=== PATIENT | male | born 1945 | race Caucasian/White ===

== ENCOUNTER 2017-02-09 06:56 | Outpatient (CLI) | payer OTHER ==
[~2017-02-09] VITALS: Ht 185.4 cm; Wt 88.0 kg
[2017-02-09] VITALS (12 sets, daily range): BP systolic 93–149; BP diastolic 55–87
[~2017-02-09 06:56] MED LIST: ACET325T9 PO; ALPR0.5T6 PO; AMLO5TAB2 PO; CARB15DR3 EACHEYE; CEPH-264 PO; CITA40TA12 PO; CLON1TAB3 PO; CLOT15CR5 TP; DICL100G7 TP; DIPH1TAB5 PO; ENAL20TA PO; ENAL20TA4 PO; ENOX40DI SQ; ESCI10TA PO; FERR-26 PO; FOLI1TAB16 PO; FURO-68 PO; FURO20TA3 PO; FURO40TA4 PO; INSU100I17 SUBCUT; INSU100V31 SQ; LEVO50TA PO; LORA0.5T PO; LORA0.5T96 PO; METO10TA81 PO; METO25TA4 PO; METO50TA2 PO; MIRT15TA PO; MORP15TA3 PO; NEOM10DR8 RIGHT EAR; ONDA-35 PO; ONDA8TAB9 PO; OXYC10TA PO; OXYC10TA32 PO; OXYC15TA60 PO; PARO20TA3 PO; POLY255P PO; POTA10CA PO; POTA8TAB PO; PROC5TAB14 PO; PROM25TA10 PO; SENN8.6T99 PO; SPIR25TA3 PO; SPIR50TA PO; TEMA15CA PO; TEMA30CA PO; TRAZ150T55 PO; ZOLP10TA PO; ZOLP5TAB PO; cefazolin IV; folic acid PO
[2017-02-09] MEDS ORDERED: ZOLP10TA4 PO (07:24)
[2017-02-09] MEDS ORDERED: IPRA3AMP NEB (07:24)
[2017-02-09] MEDS ORDERED: BACI1CAP4 PO (07:24)
[2017-02-09] MEDS ORDERED: OXYC10TA PO (07:24)
[2017-02-09] MEDS ORDERED: CEPH500C PO (07:24)
[2017-02-09 07:37] LABS: BASO % 1 % (0-3); EOS % 1 % (0-3); HEMATOCRIT 24.9 % (39.0-53.0); LYMPH # 0.4 x10^3/uL (1.0-4.8); LYMPH % 16 % (24-48); MEAN CORPUSCULAR HEMOGLOBIN 29 pg (25-35); MEAN CORPUSCULAR HGB CONC 32 g/dL (31-37); MEAN CORPUSCULAR VOLUME 90 fL (79-100); MONO % 9 % (0-9); NEUT % 74 % (31-73); PLATELET COUNT 67 x10^3/uL (140-400); RED BLOOD COUNT 2.78 x10^6/uL (4.30-5.70); RED CELL DISTRIBUTION WIDTH 18.4 % (11.5-14.5); WHITE BLOOD COUNT 2.5 x10^3/uL (4.0-11.0)
[2017-02-09] MEDS ORDERED: OXYCODONE ER 10 MG TAB.ER.12H. PO ONE (07:45)
[2017-02-09 08:00] LABS: INR 1.3 (0.8-1.1); PROTHROMBIN TIME PATIENT 15.7 SEC (11.7-14.0)
[2017-02-09] MEDS ORDERED: LIDOCAINE 1% / SOD BICARB 8.4% 20 ML VIAL. IJ ONE ×2 (08:13→09:00)
[2017-02-09] MEDS ORDERED: MIDAZOLAM HCL/PF 2 MG/2 ML VIAL. ONE (08:18)
[2017-02-09] MEDS ORDERED: FENTANYL PF 100 MCG/2 ML VIAL. ONE (08:18)
--- NOTE | 2017-02-09 08:47 | PDOC ---
MODERATE SEDATION ASSESSMENT RISKS/ALTERNATIVES Risks/Alternatives Risks and alternatives of this type of sedation and procedure discussed with: RISK/ALTERNATIVES: Patient H & P ON CHART H & P H & P on chart and reviewed for co-morbid conditions and appropriate labs. H&P ON CHART: Yes STATUS PREG STATUS ASSESSED: N/A MEDS/ALLERGIES REVIEWED Meds/Allergies Reviewed Medications and Allergies including time and route of recently administered narcotics and sedatives. MEDS/ALLERGIES REVIEWED: Yes ASA RATING ASA RATING: III AIRWAY ASSESSMENT Airway Assessment Airway patency, oral function limitations, presence of caps, crowns, dentures, partials, and ability to extend neck assessed. AIRWAY ASSESSMENT: Yes MALLAMPATI SCORE MALLAMPATI SCORE: II PRE-SEDATION ASSESSMENT PRE-SEDATION ASSESSMENT: Yes DURGA PELAYO MD Feb 09, 2017 08:47
--- NOTE | 2017-02-09 08:51 | PDOC1 ---
History and Physical Date of Procedure Date of Admission 02/09/17 Procedure Procedure Image guided Tx paracentesis Indication Indication 71 YO male with h/o CHF and CKD. Now with recurrent, large volume, symptomatic ascites----Tx paracentesis has been requested. Past Medical History Past Medical History See Nursing Pre procedure PMH Past Surgical History Past Surgical History See Nursing Pre procedure PSH Current Medications Current Medications Current Medications Oxycodone HCl (Oxycontin) 10 mg 1X ONCE PO Last administered on 02/09/17t 08: 06; Start 02/09/17 at 07:45; Stop 02/09/17 at 08:00; Status DC Lidocaine/Sodium Bicarbonate (Buffered Lidocaine 1%) 20 ml STK-MED ONCE IJ ; Start 02/09/17 at 08:13; Stop 02/09/17 at 08:14; Status DC Fentanyl Citrate (Fentanyl 2ml Vial) 100 mcg STK-MED ONCE .ROUTE ; Start at 08:18; Stop 02/09/17 at 08:19; Status DC Midazolam HCl (Versed) 2 mg STK-MED ONCE .ROUTE ; Start 02/09/17 at 08:18; Stop 02/09/17 at 08:19; Status DC Active Scripts Active Reported Duoneb 0.5-3(2.5) Mg/3 Ml (Albuterol/Ipratropium) 3 Ml Ampul.neb 3 Ml NEB Q4HRS PRN Zolpidem Tartrate 10 Mg Tablet 1 Tab PO QHS Probiotic Formula Capsule (Bacillus Coagulans/Inulin) 1 Each Capsule 1 Each PO DAILY Oxycodone Hcl 10 Mg Tablet 10 Mg PO Q8HRS PRN Cephalexin 500 Mg Capsule 1 Cap PO BID Voltaren (Diclofenac Sodium) 100 Gm Gel..gram. 2 Gm TP QIDPRN PRN Ondansetron Hcl 4 Mg Tablet 8 Mg PO QIDPRN PRN Clotrimazole-Betamethasone Crm (Clotrimazole/Betamethasone Dip) 15 Gm Cream..g. 1 Rolando TP BID Potassium Chloride 10 Meq Capsule.er 8 Meq PO DAILY Furosemide 20 Mg Tablet 1 Tab PO DAILY [ folic acid] 1 Mg PO DAILY Senokot (Sennosides) 8.6 Mg Tablet 1 Tab PO DAILY PRN Tylenol (Acetaminophen) 325 Mg Tablet 650 Mg PO PRN Q8HRS PRN Escitalopram Oxalate 10 Mg Tablet 1 Tab PO DAILY Alprazolam 0.5 Mg Tablet 0.5 Mg PO Q8HRS PRN Amlodipine Besylate 5 Mg Tablet 5 Mg PO DAILY Synthroid (Levothyroxine Sodium) 50 Mcg Tablet 100 Mcg PO DAILYAC Allergies Allergies: Coded Allergies: egg (Verified Allergy, Severe, 07/27/16) adhesive (Verified Allergy, Intermediate, Rash, 07/15/16) morphine (Verified Adverse Reaction, Mild, AGGITATION, 11/06/16) Physical Exam Vital Signs Vital Signs Date Time Temp Pulse Resp B/P Pulse Ox O2 Delivery O2 Flow Rate FiO2 02/09/17 08:37 82 14 99 Room Air 02/09/17 07:33 98.1 124/83 98.1 Lungs: Clear to auscultation Heart: Regular rate Psych/Mental Status: Mental status NL Other Abdomen: Distended with fluid wave. Assessment Assessment Recurrent, large volume, symptomatic ascites. Problems: Plan Plan Image guided Tx paracentesis DURGA PELAYO MD Feb 09, 2017 08:51
--- NOTE | 2017-02-09 08:54 | PDOC ---
Exam Magazine Filler Magazine Filler Kiera Contract Law Specialist Contract Law Specialist F Ndumbu Pre-Procedure Diagnosis Pre-Procedure Diagnosis 71 YO male with h/o CHF and CKD. Recurrent, large volume, symptomatic ascites. Post-Procedure Diagnosis Post-Procedure Diagnosis Same Procedure Performed Procedure Performed CT guided Tx paracentesis Type of Anesthesia Type of Anesthesia Local + Mod sedation Estimated Blood Loss EBL: Trace Specimens Specimans 5600 cc yellow-clear ascites removed and discarded. Condition of Patient Condition of Patient Stable. No apparent complication. Infusion of 25 grams 25% albumin initiated during paracentesis procedure. Disposition Disposition Home from [facility] post recovery, if no problems. F/u with referring physician. Full report to follow. DURGA PELAYO MD Feb 09, 2017 08:53
[2017-02-09] MEDS ORDERED: FENTANYL PF 100 MCG/2 ML VIAL. IV ONE (09:00)
[2017-02-09] MEDS ORDERED: ALBUMIN HUMAN 25% 100 ML IV ONE (09:00)
[2017-02-09] MEDS ORDERED: MIDAZOLAM HCL/PF 2 MG/2 ML VIAL. IV ONE (09:00)
--- NOTE | 2017-02-10 10:50 | RAD ---
CT-guided therapeutic paracentesis Indication: 71-year-old male with chronic kidney disease, congestive heart failure, and recurrent, symptomatic, large volume ascites. Image guided paracentesis has been requested. Anesthesia: 31 minutes moderate sedation was provided utilizing a total of 2 mg Versed and 100 mcg fentanyl, IV. The patient was appropriately monitored by a qualified independent observer throughout the time of moderate sedation. Procedure: Informed consent was obtained from the patient. He was placed supine on the CT scanner. Preliminary noncontrast CT images were obtained through abdomen and pelvis. These images confirmed the presence of a large volume of abdominal and pelvic ascites. A lateral right abdominal skin site suitable for CT-guided paracentesis was selected and marked. The area was prepped and draped in usual sterile fashion. Conscious sedation was provided with IV Versed and fentanyl. Using aseptic technique, local anesthesia, and CT guidance, a micropuncture sheath was successfully introduced into right lateral peritoneal cavity. The sheath was then exchanged over a guidewire for a 6 Vietnamese drainage catheter. Approximately 5600 cc of yellow-colored clear ascites was then easily removed and was discarded. Completion CT images revealed essentially complete resolution of ascites. The drainage catheter was removed and a sterile dressing was applied. Patient tolerated the procedure well without apparent complication. Infusion of 25 g 25% albumin was initiated during the paracentesis procedure. Impression: Successful, uneventful CT-guided therapeutic paracentesis, as described. PQRS compliance statement: One or more of the following individualized dose reduction techniques was utilized for this CT procedure: 1. Automated exposure control. 2. Adjustment of MA and/or KV according to patient size. 3. Iterative reconstruction technique.
== END 2017-02-09 10:30 ==
LOC: INTRAD 06:56
PROVIDERS: ATTEND Internal Medicine
DX: R18.8 Other ascites (principal); E11.22 Type 2 diabetes mellitus with diabetic chronic kidney disease; I13.0 Hypertensive heart and chronic kidney disease with heart failure and stage 1 through stage 4 chronic kidney disease, or unspecified chronic kidney disease; N18.9 Chronic kidney disease, unspecified; I50.9 Heart failure, unspecified; F41.9 Anxiety disorder, unspecified; F32.9 Major depressive disorder, single episode, unspecified; D64.9 Anemia, unspecified; E03.9 Hypothyroidism, unspecified; E78.00 Pure hypercholesterolemia, unspecified; Z96.641 Presence of right artificial hip joint; Z90.49 Acquired absence of other specified parts of digestive tract
CPT/HCPCS: 36415; 49083; 85027; 85610; A4215; C1729; C1892; C1894; J2250; J3010; P9046

== ENCOUNTER 2017-03-30 08:01 | Outpatient (CLI) | payer OTHER ==
[~2017-03-30] VITALS: Ht 185.4 cm; Wt 88.0 kg
[~2017-03-30 08:01] MED LIST changes: +BACI1CAP4 PO; +CEPH500C PO; +IPRA3AMP NEB; +NEOM10DR32 RIGHT EAR; -NEOM10DR8 RIGHT EAR; -POTA10CA PO; +POTASSIUM CHLO10 MEQ PO; +ZOLP10TA4 PO
[2017-03-30] MEDS ORDERED: LEVO112T4 PO (08:31)
[2017-03-30] MEDS ORDERED: ESCI20TA PO (08:31)
[2017-03-30 08:37] LABS: BASO % 1 % (0-3); EOS % 1 % (0-3); HEMATOCRIT 26.2 % (39.0-53.0); HEMOGLOBIN 8.4 g/dL (13.0-17.5); LYMPH # 0.5 x10^3/uL (1.0-4.8); LYMPH % 22 % (24-48); MEAN CORPUSCULAR HEMOGLOBIN 29 pg (25-35); MEAN CORPUSCULAR HGB CONC 32 g/dL (31-37); MEAN CORPUSCULAR VOLUME 90 fL (79-100); MONO % 11 % (0-9); NEUT % 65 % (31-73); PLATELET COUNT 77 x10^3/uL (140-400); RED BLOOD COUNT 2.91 x10^6/uL (4.30-5.70); RED CELL DISTRIBUTION WIDTH 18.6 % (11.5-14.5); WHITE BLOOD COUNT 2.2 x10^3/uL (4.0-11.0)
[2017-03-30 08:47] LABS: INR 1.3 (0.8-1.1); PROTHROMBIN TIME PATIENT 15.1 SEC (11.7-14.0)
[2017-03-30 08:58] VITALS: BP 108/70
[2017-03-30] MEDS ORDERED: LIDOCAINE 1% / SOD BICARB 8.4% 20 ML VIAL. IJ ONE ×2 (09:35→10:30)
[2017-03-30] MEDS ORDERED: fentaNYL PF VIAL 100 MCG/2 ML VIAL ONE (09:56)
[2017-03-30 10:03] VITALS: BP 119/77
[2017-03-30] MEDS ORDERED: ALBUMIN HUMAN 25% 100 ML IV ONE ×2 (10:11→10:30)
--- NOTE | 2017-03-30 10:28 | PDOC1 ---
History and Physical Date of Procedure Date of Admission 03/30/[address] guided Tx paracentesis Indication Indication 71 YO male with diabetes, CHF, CAD, atrial fib, CKD, MDS, pancytopenia, and recurrent, symptomatic large volume ascites. Past Medical History Past Medical History See extensive Nursing Pre Procedure PMH Past Surgical History Past Surgical History See Nursing Pre procedure PSH Current Medications Current Medications Current Medications Lidocaine/Sodium Bicarbonate (Buffered Lidocaine 1%) 20 ml STK-MED ONCE IJ ; Start 03/30/17 at 09:35; Stop 03/30/17 at 09:36; Status DC Fentanyl Citrate (Fentanyl 2ml Vial) 100 mcg STK-MED ONCE .ROUTE ; Start at 09:56; Stop 03/30/17 at 09:57; Status DC Lidocaine/Sodium Bicarbonate (Buffered Lidocaine 1%) 20 ml 1X ONCE IJ ; Start 03/30/17 at 10:30; Stop 03/30/17 at 10:31 Fentanyl Citrate (Fentanyl 2ml Vial) 50 mcg 1X ONCE IV ; Start 03/30/17 at 10:30 ; Stop 03/30/17 at 10:31 Albumin Human 100 ml @ As Directed STK-MED ONCE IV ; Start 03/30/17 at 10:11; Stop 03/30/17 at 10:12; Status DC Albumin Human 100 ml @ 100 mls/hr 1X ONCE IV ; Start 03/30/17 at 10:30; Stop at 11:29 Active Scripts Active Reported Levothyroxine Sodium 112 Mcg Tablet 1 Tab PO DAILY Escitalopram Oxalate 20 Mg Tablet 1 Tab PO DAILY Duoneb 0.5-3(2.5) Mg/3 Ml (Albuterol/Ipratropium) 3 Ml Ampul.neb 3 Ml NEB Q4HRS PRN Zolpidem Tartrate 10 Mg Tablet 1 Tab PO QHS Probiotic Formula Capsule (Bacillus Coagulans/Inulin) 1 Each Capsule 1 Each PO DAILY Oxycodone Hcl 10 Mg Tablet 10 Mg PO Q8HRS PRN Cephalexin 500 Mg Capsule 1 Cap PO BID Voltaren (Diclofenac Sodium) 100 Gm Gel..gram. 2 Gm TP QIDPRN PRN Ondansetron Hcl 4 Mg Tablet 8 Mg PO QIDPRN PRN Clotrimazole-Betamethasone Crm (Clotrimazole/Betamethasone Dip) 15 Gm Cream..g. 1 Rolando TP BID Potassium Chloride 10 Meq Capsule.er 8 Meq PO DAILY Furosemide 20 Mg Tablet 1 Tab PO DAILY [ folic acid] 1 Mg PO DAILY Senokot (Sennosides) 8.6 Mg Tablet 1 Tab PO DAILY PRN Tylenol (Acetaminophen) 325 Mg Tablet 650 Mg PO PRN Q8HRS PRN Alprazolam 0.5 Mg Tablet 0.5 Mg PO Q8HRS PRN Amlodipine Besylate 5 Mg Tablet 5 Mg PO DAILY Allergies Allergies: Coded Allergies: egg (Verified Allergy, Severe, 07/27/16) adhesive (Verified Allergy, Intermediate, Rash, 07/15/16) morphine (Verified Adverse Reaction, Mild, AGGITATION, 11/06/16) Physical Exam Vital Signs Vital Signs Date Time Temp Pulse Resp B/P (MAP) Pulse Ox O2 Delivery O2 Flow Rate FiO2 03/30/17 10:03 77 16 119/77 (91) 100 Room Air 03/30/17 08:58 97.6 97.6 Lungs: Other (Diminished basilar breath sounds) Heart: Regular rate Other Abdominal distension Assessment Assessment 71 YO male with multiple medical issues---now with recurrent, large volume, symptomatic ascites Problems: Plan Plan Image guided Tx paracentesis DURGA PELAYO MD Mar 30, 2017 10:28
[2017-03-30] MEDS ORDERED: fentaNYL PF VIAL 100 MCG/2 ML VIAL IV ONE (10:30)
--- NOTE | 2017-03-30 10:36 | PDOC ---
Exam Perlite Grinder Perlite Grinder Kiera Paste Up Artist Apprentice Paste Up Artist Apprentice F Ndumbu Pre-Procedure Diagnosis Pre-Procedure Diagnosis 71 YO male with DM, CHF, CAD, atrial fib, CKD, pancytopenia, and recurrent, large volume, symptomatic ascites Post-Procedure Diagnosis Post-Procedure Diagnosis Same Procedure Performed Procedure Performed CT guided Tx Paracentesis Type of Anesthesia Type of Anesthesia Local + IV fentanyl analgesia Estimated Blood Loss EBL: Trace Specimens Specimans 4500 cc straw-clear ascites removed-----samples to lab for culture and cytology. Condition of Patient Condition of Patient No change. No apparent complication. infusion of 25 grams 25% albumin initiated during paracentesis procedure. Disposition Disposition Discharge from [facility] post recovery, if no problems. F/u with Dr Smith. Full report to follow. DURGA PELAYO MD Mar 30, 2017 10:36
[2017-03-30 10:45] VITALS: BP 116/73
[2017-03-30 11:15] VITALS: BP 109/74
[2017-03-30 11:45] VITALS: BP 123/73
--- NOTE | 2017-03-30 14:27 | RAD ---
Right hip radiographs History: Pain from fall 8 months earlier. Comparison: 09/22/2016. Findings: AP and frog-leg views of the right hip, 3 images. The right hip hemiarthroplasty is unchanged including femoral head component demonstrating moderately dense material which previous imaging reports as antibiotic impregnated device. Lateral femoral fixation plate and multiple cerclage wires are seen involving the proximal and mid femur. There is exuberant callus formation and nonaggressive periosteal reaction involving the proximal femoral shaft which has increased from previous study and is compatible with healing. Impression: Postsurgical changes are similar to previous study. There is exuberant callus formation involving the proximal femoral shaft, increased from previous study.
--- NOTE | 2017-03-30 14:49 | RAD ---
Indication persistent back pain associated with a fall 8 months earlier. AP and lateral views of the thoracic spine were obtained as well as a swimmer's view. Note is made of a previous examination 09/21/2016. Moderate osteophytes are noted at multiple levels. An acute finding is not seen. A significant change compared to the prior exam is not seen. Slight wedging of T12 is noted but this appears similar to the previous exam. IMPRESSION: Spondylitic changes. No acute finding. No significant change.
--- NOTE | 2017-03-30 14:52 | RAD ---
Indication persistent pain associated with a fall 8 months previously. AP lateral and cone-down view targeted to the lumbosacral junction were obtained. Comparison is made to an examination 09/21/2016. There has been little change compared to the previous exam. Degenerative changes are noted. No acute finding is seen. There are degenerative changes involving the SI joints. IMPRESSION: Spondylitic changes. No acute finding. No significant change.
--- NOTE | 2017-03-30 16:19 | RAD ---
CT-guided therapeutic paracentesis Indication: 71-year-old male with diabetes, congestive heart failure, chronic kidney disease, coronary artery disease, MDS, pancytopenia, and recurrent, symptomatic large-volume ascites. Image guided therapeutic paracentesis has been requested. Anesthesia: Local plus IV fentanyl analgesia. Procedure: Informed consent was obtained from the patient. He was placed supine on the CT scanner. Preliminary noncontrast CT images were obtained through abdomen and pelvis. These images confirmed the presence of a large volume of abdominal and pelvic ascites. A left lower quadrant skin site suitable for CT-guided paracentesis was selected and marked. The area was prepped and draped in usual sterile fashion. Using aseptic technique, local anesthesia, and CT guidance, a micropuncture sheath was successfully introduced into left lower quadrant peritoneal cavity. The sheath was then exchanged over a guidewire for a 6 Kazakh drainage catheter. Approximately 4500 cc of straw-clear ascites was then easily removed, samples which were submitted to the clinical laboratory for culture and cytology. Completion CT images revealed significant reduction in volume of ascites. The drainage catheter was removed and a sterile dressing was applied. Patient tolerated the procedure well without apparent complication. Infusion of 25 g g 25% albumin was initiated during the paracentesis procedure. Impression: Successful, uneventful CT-guided therapeutic paracentesis, as described. PQRS compliance statement: One or more of the following individualized dose reduction techniques was utilized for this CT procedure: 1. Automated exposure control. 2. Adjustment of MA and/or KV according to patient size. 3. Iterative reconstruction technique.
== END 2017-03-30 12:45 ==
LOC: INTRAD 08:01
PROVIDERS: ATTEND Internal Medicine
DX: R18.8 Other ascites (principal); I25.10 Atherosclerotic heart disease of native coronary artery without angina pectoris; I50.9 Heart failure, unspecified; I13.0 Hypertensive heart and chronic kidney disease with heart failure and stage 1 through stage 4 chronic kidney disease, or unspecified chronic kidney disease; E11.22 Type 2 diabetes mellitus with diabetic chronic kidney disease; N18.9 Chronic kidney disease, unspecified; E78.00 Pure hypercholesterolemia, unspecified; J44.9 Chronic obstructive pulmonary disease, unspecified; I48.91 Unspecified atrial fibrillation; D64.9 Anemia, unspecified; E03.9 Hypothyroidism, unspecified; F41.9 Anxiety disorder, unspecified; Z86.14 Personal history of Methicillin resistant Staphylococcus aureus infection; Z96.641 Presence of right artificial hip joint; F32.9 Major depressive disorder, single episode, unspecified
CPT/HCPCS: 36415; 49083; 72072; 72100; 73502; 85027; 85610; 87071; 87075; 87205; 88112; 88305; A4215; C1729; C1892; C1894; J3010; P9046

== ENCOUNTER → 2017-07-10 | Outpatient (CLI) | payer OTHER ==
[~2017-07-10] VITALS: Ht 185.4 cm; Wt 88.0 kg
[~2017-07-10] MED LIST changes: +DICL100G18 TP; -DICL100G7 TP; -ESCI10TA PO; +ESCITALOPRAM OX10 MG PO; +ESCITALOPRAM OX20 MG PO; +LEVO112T4 PO; -ONDA-35 PO; +ONDA4TAB11 PO; -OXYC10TA32 PO; +OXYC10TA45 PO; +TRAZ150T49 PO; -TRAZ150T55 PO
[2017-07-10 08:18] VITALS: BP 106/61
[2017-07-10 08:26] LABS: HEMATOCRIT 24.8 % (39.0-53.0); HEMOGLOBIN 7.9 g/dL (13.0-17.5)
[2017-07-10 10:55] VITALS: BP 104/56
[2017-07-10 11:42] VITALS: BP 118/65
== END ==
LOC: OPS 07:27
PROVIDERS: ATTEND Internal Medicine
DX: D64.9 Anemia, unspecified (principal)
CPT/HCPCS: 36415; 36430; 85014; 85018; 86850; 86900; 86901; 86920; P9016

== ENCOUNTER 2017-10-03 07:10 | Outpatient (CLI) | payer OTHER ==
[~2017-10-03] VITALS: Ht 185.4 cm; Wt 88.0 kg
[~2017-10-03 07:10] MED LIST changes: -METO50TA2 PO; +METO50TA6 PO
[2017-10-03 07:48] VITALS: BP 123/68
[2017-10-03 07:51] LABS: BASO % 1 % (0-3); EOS % 1 % (0-3); HEMATOCRIT 25.4 % (39.0-53.0); LYMPH # 0.4 x10^3/uL (1.0-4.8); LYMPH % 18 % (24-48); MEAN CORPUSCULAR HEMOGLOBIN 29 pg (25-35); MEAN CORPUSCULAR HGB CONC 32 g/dL (31-37); MEAN CORPUSCULAR VOLUME 91 fL (79-100); MONO % 11 % (0-9); NEUT % 69 % (31-73); PLATELET COUNT 97 x10^3/uL (140-400); RED CELL DISTRIBUTION WIDTH 19.3 % (11.5-14.5)
[2017-10-03] MEDS ORDERED: LIDOCAINE 1% / SOD BICARB 8.4% 20 ML VIAL. IJ ONE ×2 (07:57→09:00)
[2017-10-03 08:00] LABS: INR 1.2 (0.8-1.1); PROTHROMBIN TIME PATIENT 14.9 SEC (11.7-14.0)
[2017-10-03] MEDS ORDERED: ALBUMIN HUMAN 25% 200 ML IV ONE (09:11)
[2017-10-03] MEDS ORDERED: ALBUMIN HUMAN 25% 100 ML IV ONE ×2 (09:15)
[2017-10-03 09:16] VITALS: BP 111/62
[2017-10-03 09:34] VITALS: BP 117/70
--- NOTE | 2017-10-03 13:19 | RAD ---
Ultrasound-guided paracentesis 10/03/2017 9:02 AM Procedure: Informed consent was obtained. A timeout procedure was performed. Sonographic evaluation of the abdomen was performed demonstrating . The right lower quadrant was prepped and draped in sterile fashion. 1% lidocaine without epinephrine was administered for local anesthesia. Real-time ultrasonographic guidance was used in passing a 5 Hebrew Yueh catheter into the fluid collection 7.7 L of blood-tinged ascites was removed. The catheter was removed and pressure held to achieve hemostasis. A sterile dressing was applied. Impression: Successful ultrasound-guided paracentesis
== END 2017-10-03 10:45 | disposition home or self-care (01) ==
LOC: INTRAD 07:10
PROVIDERS: ATTEND Internal Medicine
DX: R18.8 Other ascites (principal); E78.00 Pure hypercholesterolemia, unspecified; I48.91 Unspecified atrial fibrillation; J44.9 Chronic obstructive pulmonary disease, unspecified; I13.0 Hypertensive heart and chronic kidney disease with heart failure and stage 1 through stage 4 chronic kidney disease, or unspecified chronic kidney disease; E11.22 Type 2 diabetes mellitus with diabetic chronic kidney disease; N18.9 Chronic kidney disease, unspecified; I50.9 Heart failure, unspecified; E03.9 Hypothyroidism, unspecified; F41.9 Anxiety disorder, unspecified; F32.9 Major depressive disorder, single episode, unspecified; F17.200 Nicotine dependence, unspecified, uncomplicated; Z86.14 Personal history of Methicillin resistant Staphylococcus aureus infection; Z98.86 Personal history of breast implant removal; Z86.69 Personal history of other diseases of the nervous system and sense organs; Z86.73 Personal history of transient ischemic attack (TIA), and cerebral infarction without residual deficits; Z96.641 Presence of right artificial hip joint; Z86.39 Personal history of other endocrine, nutritional and metabolic disease; Z91.012 Allergy to eggs; Z88.5 Allergy status to narcotic agent; Z91.048 Other nonmedicinal substance allergy status
CPT/HCPCS: 36415; 49083; 85025; 85610; P9046

== ENCOUNTER 2017-11-30 13:55 | Inpatient (IN) | payer OTHER, MEDICARE ==
[2017-11-30 14:22] LABS: BASO % 1 % (0-3); EOS % 1 % (0-3); HEMATOCRIT 24.4 % (39.0-53.0); HEMOGLOBIN 7.8 g/dL (13.0-17.5); LYMPH # 0.4 x10^3/uL (1.0-4.8); LYMPH % 25 % (24-48); MEAN CORPUSCULAR HEMOGLOBIN 31 pg (25-35); MEAN CORPUSCULAR HGB CONC 32 g/dL (31-37); MEAN CORPUSCULAR VOLUME 96 fL (79-100); MONO # 0.2 x10^3/uL (0.0-1.1); MONO % 13 % (0-9); NEUT # 1.1 x10^3uL (1.8-7.7); NEUT % 61 % (31-73); PLATELET COUNT 62 x10^3/uL (140-400); RED BLOOD COUNT 2.54 x10^6/uL (4.30-5.70); RED CELL DISTRIBUTION WIDTH 23.9 % (11.5-14.5)
[2017-11-30 14:29] LABS: WHITE BLOOD COUNT 1.8 x10^3/uL (4.0-11.0)
[2017-11-30 14:30] LABS: ADD MAN DIFF? YES
[2017-11-30 14:31] LABS: INR 1.6 (0.8-1.1); PARTIAL THROMBOPLASTIN TIME 42 SEC (24-38); PROTHROMBIN TIME PATIENT 17.8 SEC (11.7-14.0)
[2017-11-30 14:43] LABS: ANION GAP 6 (6-14); BLOOD UREA NITROGEN 27 mg/dL (8-26); BUN/CREATININE RATIO 14 (6-20); CALCIUM 8.5 mg/dL (8.5-10.1); CARBON DIOXIDE 29 mmol/L (21-32); CHLORIDE 102 mmol/L (98-107); GFR 33.1; GLUCOSE 132 mg/dL (70-99); SODIUM 137 mmol/L (136-145)
[2017-11-30 14:49] LABS: ALBUMIN 3.1 g/dL (3.4-5.0); ALBUMIN/GLOBULIN RATIO 0.9 (1.0-1.7); ALK PHOS 113 U/L (46-116); ALT (SGPT) 21 U/L (16-63); AST (SGOT) 42 U/L (15-37); LIPASE 58 U/L (73-393); MAGNESIUM 2.2 mg/dL (1.8-2.4); TOTAL BILIRUBIN 2.6 mg/dL (0.2-1.0); TOTAL PROTEIN 6.4 g/dL (6.4-8.2)
[2017-11-30 14:51] LABS: POTASSIUM 4.9 mmol/L (3.5-5.1)
[2017-11-30 14:57] LABS: % BANDS 11 % (0-9); % LYMPHS 26 % (24-48); % MONOS 10 % (0-10); % MYELOS 1 % (0-0); % SEGS 52 % (35-66); PLT ESTIMATE DECREASED (ADEQUATE); POIKILOCYTOSIS MOD; SPHEROCYTES FEW
[2017-11-30 14:58] LABS: BIZZARE CELLS FEW; POLYCHROMASIA SLIGHT; SCHISTOCYTES FEW
[2017-11-30 14:59] LABS: ANISOCYTOSIS MOD
[2017-11-30] MEDS ORDERED: ONDANSETRON PF 4 MG/2 ML VIAL. IV (15:15)
[2017-11-30 15:23] LABS: FECAL OB PT NEGATIVE (NEG); NEG OBC FOB NEG; POS OBC FOB POS
[2017-11-30] MEDS: IV NORMAL SALINE 500ML BAG 500 ML IV (15:53)
[2017-11-30 17:21] LABS: POC GLUCOSE 97 mg/dL (70-99)
[2017-11-30] MEDS: C.DIFF MED SCREEN BY RX. MC (17:30)
[2017-11-30] MEDS ORDERED: ALBUTEROL SULFATE 2.5 MG/3 ML NEBU. NEB (17:45)
[2017-11-30] MEDS: oxyCODONE IR 5 MG TABLET PO (18:15)
[2017-11-30] MEDS: IV NORMAL SALINE 1000ML BAG 1,000 ML IV (18:15)
[2017-11-30] MEDS ORDERED: NON FORMULARY ITEM (Cephalexin 1 CAP) PO (21:00)
[2017-11-30] MEDS: POTASSIUM CHLORIDE 10 MEQ TABLET.ER. PO ×2 (22:22→22:25)
[2017-11-30] MEDS: ZOLPIDEM 5 MG TABLET. PO ×2 (22:22→22:25)
[2017-11-30] MEDS: ALPRAZolam 0.25 MG TABLET PO ×2 (22:22→22:25)
[2017-11-30] MEDS: LACTOBACILLUS RHAMNOSUS GG 1 CAPSULE. PO ×2 (22:22→22:25)
[2017-11-30] MEDS: CITALOPRAM 20 MG TABLET. PO ×2 (22:22→22:25)
[2017-11-30] MEDS: FOLIC ACID 1 MG TABLET. PO (22:22)
[2017-11-30] MEDS: CLOTRIMAZOLE/BETAMETH 1%-0.05% TOPICAL CREAM 15GM TUBE. TP (22:23)
[2017-12-01 03:58] LABS: ADD MAN DIFF? NO
[2017-12-01 04:05] LABS: BASO % 1 % (0-3); EOS % 0 % (0-3); HEMATOCRIT 22.6 % (39.0-53.0); HEMOGLOBIN 7.2 g/dL (13.0-17.5); LYMPH # 0.4 x10^3/uL (1.0-4.8); LYMPH % 25 % (24-48); MEAN CORPUSCULAR HEMOGLOBIN 31 pg (25-35); MEAN CORPUSCULAR HGB CONC 32 g/dL (31-37); MEAN CORPUSCULAR VOLUME 97 fL (79-100); MONO # 0.2 x10^3/uL (0.0-1.1); MONO % 13 % (0-9); NEUT # 0.9 x10^3uL (1.8-7.7); NEUT % 61 % (31-73); PLATELET COUNT 50 x10^3/uL (140-400); RED BLOOD COUNT 2.34 x10^6/uL (4.30-5.70); RED CELL DISTRIBUTION WIDTH 23.5 % (11.5-14.5)
[2017-12-01 04:07] LABS: WHITE BLOOD COUNT 1.5 x10^3/uL (4.0-11.0)
[2017-12-01 04:21] LABS: ANION GAP 7 (6-14); BLOOD UREA NITROGEN 25 mg/dL (8-26); CALCIUM 8.1 mg/dL (8.5-10.1); CARBON DIOXIDE 27 mmol/L (21-32); CHLORIDE 105 mmol/L (98-107); CREATININE 1.9 mg/dL (0.7-1.3); GFR 35.1; GLUCOSE 114 mg/dL (70-99); POTASSIUM 3.7 mmol/L (3.5-5.1); SODIUM 139 mmol/L (136-145)
[2017-12-01] MEDS: ALPRAZolam 0.25 MG TABLET PO ×2 (05:13→17:18)
[2017-12-01] MEDS: oxyCODONE IR 5 MG TABLET PO ×2 (05:15→19:57)
[2017-12-01] MEDS: LEVOTHYROXINE 112 MCG TABLET PO (07:00)
[2017-12-01 08:32] LABS: POC GLUCOSE 94 mg/dL (70-99)
[2017-12-01] MEDS: CLOTRIMAZOLE/BETAMETH 1%-0.05% TOPICAL CREAM 15GM TUBE. TP ×3 (09:00→21:00)
[2017-12-01] MEDS: FUROSEMIDE 20 MG TABLET PO (09:05)
[2017-12-01] MEDS: amLODIPine BESYLATE 5 MG TABLET PO (09:05)
[2017-12-01] MEDS: FOLIC ACID 1 MG TABLET. PO (09:05)
[2017-12-01] MEDS: IV NORMAL SALINE 1000ML BAG 1,000 ML IV ×2 (09:06→19:57)
[2017-12-01] MEDS: DICLOFENAC SODIUM 1% TOPICAL GEL 100GM TUBE. TP (09:07)
[2017-12-01 12:09] LABS: POC GLUCOSE 86 mg/dL (70-99)
[2017-12-01] MEDS: ACETAMINOPHEN 325 MG TABLET. PO (12:53)
[2017-12-01 15:22] LABS: BILIRUBIN,URINE NEGATIVE (NEG); CLARITY,URINE CLEAR; COLOR,URINE YELLOW; GLUCOSE,URINE NEGATIVE (NEG); NITRITE,URINE NEGATIVE (NEG); PH,URINE 5.5; PROTEIN,URINE NEGATIVE (NEG-TRACE)
[2017-12-01 15:33] LABS: BACTERIA,URINE 0 /HPF (0-FEW); RBC,URINE 0 /HPF (0-2); SQUAMOUS EPITHELIAL CELL,UR FEW /LPF; WBC,URINE 0 /HPF (0-4)
[2017-12-01] MEDS: cefTRIAXone IV Push 1 GM VIAL. IVP (17:19)
[2017-12-01 17:21] LABS: POC GLUCOSE 133 mg/dL (70-99)
[2017-12-01] MEDS: LACTOBACILLUS RHAMNOSUS GG 1 CAPSULE. PO (19:57)
[2017-12-01 20:17] LABS: POC GLUCOSE 116 mg/dL (70-99)
[2017-12-01] MEDS: ZOLPIDEM 5 MG TABLET. PO (21:40)
[2017-12-02] MEDS: ALPRAZolam 0.25 MG TABLET PO (01:21)
[2017-12-02] MEDS: ACETAMINOPHEN 325 MG TABLET. PO ×2 (01:22→19:55)
[2017-12-02] MEDS: oxyCODONE IR 5 MG TABLET PO ×2 (04:54→18:34)
[2017-12-02 05:11] LABS: ADD MAN DIFF? NO
[2017-12-02 05:33] LABS: BASO % 1 % (0-3); EOS % 0 % (0-3); HEMATOCRIT 21.8 % (39.0-53.0); HEMOGLOBIN 7.1 g/dL (13.0-17.5); LYMPH # 0.4 x10^3/uL (1.0-4.8); LYMPH % 21 % (24-48); MEAN CORPUSCULAR HEMOGLOBIN 31 pg (25-35); MEAN CORPUSCULAR HGB CONC 33 g/dL (31-37); MEAN CORPUSCULAR VOLUME 96 fL (79-100); MONO # 0.2 x10^3/uL (0.0-1.1); MONO % 12 % (0-9); NEUT # 1.3 x10^3uL (1.8-7.7); NEUT % 66 % (31-73); PLATELET COUNT 54 x10^3/uL (140-400); RED BLOOD COUNT 2.27 x10^6/uL (4.30-5.70); RED CELL DISTRIBUTION WIDTH 24.1 % (11.5-14.5)
[2017-12-02 05:45] LABS: ANION GAP 10 (6-14); BLOOD UREA NITROGEN 22 mg/dL (8-26); CALCIUM 8.7 mg/dL (8.5-10.1); CARBON DIOXIDE 25 mmol/L (21-32); CHLORIDE 103 mmol/L (98-107); CREATININE 1.7 mg/dL (0.7-1.3); GFR 39.9; GLUCOSE 102 mg/dL (70-99); POTASSIUM 3.9 mmol/L (3.5-5.1); SODIUM 138 mmol/L (136-145)
[2017-12-02 06:05] LABS: WHITE BLOOD COUNT 1.9 x10^3/uL (4.0-11.0)
[2017-12-02 06:12] LABS: MRSA BY PCR Negative (Negative)
[2017-12-02] MEDS: LEVOTHYROXINE 112 MCG TABLET PO (06:20)
[2017-12-02] MEDS: FUROSEMIDE 20 MG TABLET PO (08:21)
[2017-12-02] MEDS: amLODIPine BESYLATE 5 MG TABLET PO (08:22)
[2017-12-02] MEDS: POTASSIUM CHLORIDE 10 MEQ TABLET.ER. PO (08:22)
[2017-12-02] MEDS: LACTOBACILLUS RHAMNOSUS GG 1 CAPSULE. PO ×2 (08:22→19:54)
[2017-12-02] MEDS: FOLIC ACID 1 MG TABLET. PO (08:22)
[2017-12-02] MEDS: CITALOPRAM 20 MG TABLET. PO (08:22)
[2017-12-02] MEDS: CLOTRIMAZOLE/BETAMETH 1%-0.05% TOPICAL CREAM 15GM TUBE. TP ×2 (08:27→20:02)
[2017-12-02] MEDS: IV NORMAL SALINE 1000ML BAG 1,000 ML IV (10:00)
[2017-12-02 12:42] LABS: FIBRINOGEN 316 mg/dL (200-440)
[2017-12-02 12:48] LABS: % SAT IRON 24 % (15-34); IRON,SERUM 39 ug/dL (65-175)
[2017-12-02 12:54] LABS: RETIC COUNT 1.3 % (0.5-2.5)
[2017-12-02 13:01] LABS: FERRITIN 372 ng/mL (26-388)
[2017-12-02 13:01] LABS: LACTATE DEHYDROGENASE 162 U/L (85-227)
[2017-12-02] MEDS: cefTRIAXone IV Push 1 GM VIAL. IVP (16:37)
[2017-12-02] MEDS: ALPRAZolam 0.5 MG TABLET PO (19:54)
[2017-12-02] MEDS: ZOLPIDEM 5 MG TABLET. PO (19:54)
[2017-12-03] MEDS: IV NORMAL SALINE 1000ML BAG 1,000 ML IV ×2 (03:32→10:30)
[2017-12-03] MEDS: oxyCODONE IR 5 MG TABLET PO ×3 (04:47→17:48)
[2017-12-03 06:01] LABS: POC GLUCOSE 127 mg/dL (70-99)
[2017-12-03 06:01] LABS: POC GLUCOSE 148 mg/dL (70-99)
[2017-12-03 06:01] LABS: POC GLUCOSE 93 mg/dL (70-99)
[2017-12-03 06:01] LABS: POC GLUCOSE 153 mg/dL (70-99)
[2017-12-03 09:39] LABS: VITAMIN-B12 828 pg/mL (247-911)
[2017-12-03 10:28] LABS: ADD MAN DIFF? NO; FOLATE > 20.00 ng/ml (3.2-20.0)
[2017-12-03 10:52] LABS: BASO % 0 % (0-3); EOS % 1 % (0-3); HEMATOCRIT 22.3 % (39.0-53.0); LYMPH # 0.4 x10^3/uL (1.0-4.8); LYMPH % 27 % (24-48); MEAN CORPUSCULAR HEMOGLOBIN 30 pg (25-35); MEAN CORPUSCULAR HGB CONC 32 g/dL (31-37); MEAN CORPUSCULAR VOLUME 96 fL (79-100); MONO # 0.2 x10^3/uL (0.0-1.1); MONO % 14 % (0-9); NEUT # 0.8 x10^3uL (1.8-7.7); NEUT % 58 % (31-73); PLATELET COUNT 47 x10^3/uL (140-400); RED BLOOD COUNT 2.32 x10^6/uL (4.30-5.70); RED CELL DISTRIBUTION WIDTH 24.2 % (11.5-14.5)
[2017-12-03 10:55] LABS: WHITE BLOOD COUNT 1.4 x10^3/uL (4.0-11.0)
[2017-12-03 11:25] LABS: ANION GAP 7 (6-14); BLOOD UREA NITROGEN 19 mg/dL (8-26); CALCIUM 7.8 mg/dL (8.5-10.1); CARBON DIOXIDE 28 mmol/L (21-32); CHLORIDE 104 mmol/L (98-107); CREATININE 1.5 mg/dL (0.7-1.3); GFR 46.1; GLUCOSE 103 mg/dL (70-99); POTASSIUM 3.6 mmol/L (3.5-5.1); SODIUM 139 mmol/L (136-145)
[2017-12-03] MEDS: amLODIPine BESYLATE 5 MG TABLET PO (11:28)
[2017-12-03] MEDS: POTASSIUM CHLORIDE 10 MEQ TABLET.ER. PO (11:28)
[2017-12-03] MEDS: FUROSEMIDE 20 MG TABLET PO (11:29)
[2017-12-03] MEDS: LEVOTHYROXINE 112 MCG TABLET PO (11:29)
[2017-12-03] MEDS: FOLIC ACID 1 MG TABLET. PO (11:29)
[2017-12-03] MEDS: CITALOPRAM 20 MG TABLET. PO (11:29)
[2017-12-03] MEDS: LACTOBACILLUS RHAMNOSUS GG 1 CAPSULE. PO ×2 (11:29→20:00)
[2017-12-03] MEDS: CLOTRIMAZOLE/BETAMETH 1%-0.05% TOPICAL CREAM 15GM TUBE. TP ×2 (11:29→20:14)
[2017-12-03 12:04] LABS: POC GLUCOSE 91 mg/dL (70-99)
[2017-12-03 12:04] LABS: POC GLUCOSE 106 mg/dL (70-99)
[2017-12-03 12:33] LABS: IMMEDIATE SPIN CROSSMATCH 1 1
[2017-12-03] MEDS: DICLOFENAC SODIUM 1% TOPICAL GEL 100GM TUBE. TP ×2 (13:30→20:14)
[2017-12-03] MEDS: tiZANidine 4 MG TABLET. PO ×2 (14:00→20:00)
[2017-12-03 18:09] LABS: POC GLUCOSE 90 mg/dL (70-99)
[2017-12-03] MEDS: ONDANSETRON ODT 4 MG TAB.RAPDIS. PO (18:14)
[2017-12-03] MEDS: ACETAMINOPHEN 325 MG TABLET. PO (20:00)
[2017-12-03] MEDS: ZOLPIDEM 5 MG TABLET. PO (20:00)
[2017-12-03] MEDS: ALPRAZolam 0.5 MG TABLET PO (20:00)
[2017-12-04] MEDS: oxyCODONE IR 5 MG TABLET PO (02:11)
[2017-12-04 05:18] LABS: ADD MAN DIFF? NO
[2017-12-04 05:24] LABS: BASO % 1 % (0-3); EOS % 1 % (0-3); HEMATOCRIT 23.1 % (39.0-53.0); HEMOGLOBIN 7.6 g/dL (13.0-17.5); LYMPH # 0.4 x10^3/uL (1.0-4.8); LYMPH % 32 % (24-48); MEAN CORPUSCULAR HEMOGLOBIN 31 pg (25-35); MEAN CORPUSCULAR HGB CONC 33 g/dL (31-37); MEAN CORPUSCULAR VOLUME 95 fL (79-100); MONO # 0.1 x10^3/uL (0.0-1.1); MONO % 11 % (0-9); NEUT # 0.7 x10^3uL (1.8-7.7); NEUT % 56 % (31-73); PLATELET COUNT 46 x10^3/uL (140-400); RED BLOOD COUNT 2.44 x10^6/uL (4.30-5.70); RED CELL DISTRIBUTION WIDTH 24.1 % (11.5-14.5)
[2017-12-04 05:29] LABS: WHITE BLOOD COUNT 1.3 x10^3/uL (4.0-11.0)
[2017-12-04] MEDS: SENNOSIDES 8.6 MG TABLET PO (06:31)
[2017-12-04] MEDS: tiZANidine 4 MG TABLET. PO (06:31)
[2017-12-04] MEDS: ACETAMINOPHEN 325 MG TABLET. PO (06:31)
[2017-12-04] MEDS: LEVOTHYROXINE 112 MCG TABLET PO (06:31)
[2017-12-04 08:06] LABS: POC GLUCOSE 100 mg/dL (70-99)
[2017-12-04 08:48] LABS: PATHOLOGY REVIEW SEE SEPARATE REPORT
[2017-12-04] MEDS: FOLIC ACID 1 MG TABLET. PO (08:59)
[2017-12-04] MEDS: POTASSIUM CHLORIDE 10 MEQ TABLET.ER. PO (09:00)
[2017-12-04] MEDS: CITALOPRAM 20 MG TABLET. PO (09:01)
[2017-12-04] MEDS: LACTOBACILLUS RHAMNOSUS GG 1 CAPSULE. PO (09:01)
[2017-12-04] MEDS: FUROSEMIDE 20 MG TABLET PO (09:02)
[2017-12-04] MEDS: CLOTRIMAZOLE/BETAMETH 1%-0.05% TOPICAL CREAM 15GM TUBE. TP (09:03)
[2017-12-04] MEDS: DICLOFENAC SODIUM 1% TOPICAL GEL 100GM TUBE. TP (09:03)
[2017-12-04] MEDS: IV NORMAL SALINE 1000ML BAG 1,000 ML IV (10:30)
[2017-12-04] MEDS: methylPREDNISolone ACETATE 40 MG/ML VIAL. IM (10:30)
[2017-12-04] MEDS: BUPIVACAINE MPF 0.25% 10 ML VIAL. IJ (10:30)
[2017-12-04 11:34] LABS: POC GLUCOSE 130 mg/dL (70-99)
[2017-12-04] MEDS: amLODIPine BESYLATE 5 MG TABLET PO (12:11)
== END 2017-12-04 13:15 | disposition home or self-care (01) | DRG 808 ==
LOC: ER 13:55 → 6 SOUTH 15:12
PROC: 30233N1 Transfusion of Nonautologous Red Blood Cells into Peripheral Vein, Percutaneous Approach (ICD-10-PCS; principal; 2017-12-03)
DX: D61.818 Other pancytopenia (principal); E43 Unspecified severe protein-calorie malnutrition; N17.9 Acute kidney failure, unspecified; E11.22 Type 2 diabetes mellitus with diabetic chronic kidney disease; G20 Parkinson's disease; I48.2 Chronic atrial fibrillation; R18.8 Other ascites; D46.9 Myelodysplastic syndrome, unspecified; Z68.1 Body mass index [BMI] 19.9 or less, adult; J44.9 Chronic obstructive pulmonary disease, unspecified; Z88.6 Allergy status to analgesic agent; Z91.012 Allergy to eggs; Z91.048 Other nonmedicinal substance allergy status; E03.9 Hypothyroidism, unspecified; E78.5 Hyperlipidemia, unspecified; G89.29 Other chronic pain; I12.9 Hypertensive chronic kidney disease with stage 1 through stage 4 chronic kidney disease, or unspecified chronic kidney disease; I25.10 Atherosclerotic heart disease of native coronary artery without angina pectoris; K21.9 Gastro-esophageal reflux disease without esophagitis; M17.11 Unilateral primary osteoarthritis, right knee; M47.816 Spondylosis without myelopathy or radiculopathy, lumbar region; Z96.641 Presence of right artificial hip joint; F32.9 Major depressive disorder, single episode, unspecified; F41.9 Anxiety disorder, unspecified; N18.9 Chronic kidney disease, unspecified; R29.6 Repeated falls; Z79.2 Long term (current) use of antibiotics; Z82.5 Family history of asthma and other chronic lower respiratory diseases; Z86.73 Personal history of transient ischemic attack (TIA), and cerebral infarction without residual deficits; Z87.891 Personal history of nicotine dependence; Z95.0 Presence of cardiac pacemaker; Z87.312 Personal history of (healed) stress fracture
CPT/HCPCS: 36415; 71045; 80048; 80053; 81001; 82274; 82607; 82728; 82746; 82962; 83540; 83550; 83615; 83690; 83735; 85007; 85025; 85045; 85384; 85610; 85730; 86850; 86900; 86901; 86920; 87040; 87086; 87641; 93005; 94760; 96365; 97110-GP; 97162-GP; 97166-GO; 97530-GP; 99285; 99285-25; J0690; J0696; J1030; J2060; J3490; J7030; J7040; P9016; Q0162

== ENCOUNTER 2018-03-05 19:13 | Observation (INO) | payer OTHER ==
[2018-03-05 20:34] LABS: BASO % 1 % (0-3); EOS % 0 % (0-3); LYMPH # 0.4 x10^3/uL (1.0-4.8); LYMPH % 17 % (24-48); MEAN CORPUSCULAR HEMOGLOBIN 31 pg (25-35); MEAN CORPUSCULAR HGB CONC 33 g/dL (31-37); MEAN CORPUSCULAR VOLUME 96 fL (79-100); MONO # 0.4 x10^3/uL (0.0-1.1); MONO % 18 % (0-9); NEUT # 1.3 x10^3uL (1.8-7.7); NEUT % 64 % (31-73); PLATELET COUNT 77 x10^3/uL (140-400); RED BLOOD COUNT 2.08 x10^6/uL (4.30-5.70); RED CELL DISTRIBUTION WIDTH 20.4 % (11.5-14.5); WHITE BLOOD COUNT 2.1 x10^3/uL (4.0-11.0)
[2018-03-05 20:36] LABS: ANION GAP 9 (6-14); BLOOD UREA NITROGEN 35 mg/dL (8-26); BUN/CREATININE RATIO 14 (6-20); CALCIUM 8.8 mg/dL (8.5-10.1); CARBON DIOXIDE 26 mmol/L (21-32); CHLORIDE 104 mmol/L (98-107); CREATININE 2.5 mg/dL (0.7-1.3); GFR 25.6; GLUCOSE 123 mg/dL (70-99); POTASSIUM 5.2 mmol/L (3.5-5.1); SODIUM 139 mmol/L (136-145)
[2018-03-05 20:38] LABS: ADD MAN DIFF? YES; HEMATOCRIT 19.9 % (39.0-53.0); HEMOGLOBIN 6.5 g/dL (13.0-17.5)
[2018-03-05 20:41] LABS: TOTAL PROTEIN 6.6 g/dL (6.4-8.2)
[2018-03-05 20:42] LABS: ALBUMIN 3.1 g/dL (3.4-5.0); ALBUMIN/GLOBULIN RATIO 0.9 (1.0-1.7); ALK PHOS 115 U/L (46-116); ALT (SGPT) 9 U/L (16-63); AST (SGOT) 12 U/L (15-37); TOTAL BILIRUBIN 2.4 mg/dL (0.2-1.0)
[2018-03-05] MEDS ORDERED: fentaNYL PF VIAL 100 MCG/2 ML VIAL IV (21:15)
[2018-03-05] MEDS ORDERED: ONDANSETRON PF 4 MG/2 ML VIAL. IV (21:15)
[2018-03-05] MEDS ORDERED: ACETAMINOPHEN 325 MG TABLET. PO (21:15)
[2018-03-05 21:32] LABS: % BANDS 16 % (0-9); % BASOS 2 % (0-3); % LYMPHS 13 % (24-48); % MONOS 17 % (0-10); % SEGS 52 % (35-66); PLT ESTIMATE DECREASED (ADEQUATE)
[2018-03-05 21:34] LABS: ANISOCYTOSIS MOD; BIZZARE CELLS FEW; POIKILOCYTOSIS MOD
[2018-03-05 21:35] LABS: ACANTHOCYTES FEW
[2018-03-05 21:36] LABS: TEAR DROP CELLS OCC
[2018-03-05 21:37] LABS: SCHISTOCYTES FEW
[2018-03-05] MEDS: IV NORMAL SALINE 1000ML BAG 1,000 ML IV (21:40)
[2018-03-05] MEDS ORDERED: fentaNYL PF VIAL 100 MCG/2 ML VIAL (21:47)
[2018-03-05] MEDS: fentaNYL PF VIAL 100 MCG/2 ML VIAL IV (21:52)
[2018-03-05] MEDS: oxyCODONE/APAP 5/325 1 TAB TABLET PO ×2 (23:00)
[2018-03-06 00:54] LABS: IMMEDIATE SPIN CROSSMATCH 1 2
[2018-03-06 06:45] LABS: MEAN CORPUSCULAR HGB CONC 34 g/dL (31-37)
[2018-03-06 07:14] LABS: HEMOGLOBIN 6.8 g/dL (13.0-17.5)
[2018-03-06 07:51] LABS: POC GLUCOSE 75 mg/dL (70-99)
[2018-03-06] MEDS ORDERED: IPRATRPIUM/ALBUTEROL 0.5/2.5MG 3 ML NEBU. NEB (08:00)
[2018-03-06] MEDS: ONDANSETRON PF 4 MG/2 ML VIAL. IV (08:40)
[2018-03-06] MEDS: fentaNYL PF VIAL 100 MCG/2 ML VIAL IV ×2 (08:40→14:41)
[2018-03-06] MEDS ORDERED: SENNOSIDES 8.6 MG TABLET PO (10:30)
[2018-03-06] MEDS ORDERED: DICLOFENAC SODIUM 1% TOPICAL GEL 100GM TUBE. TP (10:30)
[2018-03-06] MEDS ORDERED: ALBUTEROL SULFATE 2.5 MG/3 ML NEBU. NEB (10:30)
[2018-03-06] MEDS ORDERED: ZOLPIDEM 5 MG TABLET. PO (11:00)
[2018-03-06] MEDS ORDERED: ONDANSETRON ODT 4 MG TAB.RAPDIS. PO (11:00)
[2018-03-06 11:10] LABS: IMMEDIATE SPIN CROSSMATCH 1
[2018-03-06] MEDS: LEVOTHYROXINE 112 MCG TABLET PO (11:14)
[2018-03-06] MEDS: ACETAMINOPHEN 325 MG TABLET. PO (11:15)
[2018-03-06] MEDS: ALPRAZolam 0.5 MG TABLET PO (11:15)
[2018-03-06] MEDS: FUROSEMIDE 20 MG TABLET PO (11:15)
[2018-03-06] MEDS: POTASSIUM CHLORIDE 10 MEQ TABLET.ER. PO (11:15)
[2018-03-06] MEDS: LACTOBACILLUS RHAMNOSUS GG 1 CAPSULE. PO (11:15)
[2018-03-06] MEDS: amLODIPine BESYLATE 5 MG TABLET PO (11:15)
[2018-03-06] MEDS: FOLIC ACID 1 MG TABLET. PO (11:15)
[2018-03-06] MEDS: CITALOPRAM 20 MG TABLET. PO (11:23)
[2018-03-06 11:52] LABS: POC GLUCOSE 84 mg/dL (70-99)
[2018-03-06] MEDS: oxyCODONE IR 5 MG TABLET PO (14:05)
[2018-03-06] MEDS ORDERED: CLOTRIMAZOLE/BETAMETH 1%-0.05% TOPICAL CREAM 15GM TUBE. TP (21:00)
[2018-03-06] MEDS ORDERED: NON FORMULARY ITEM (Cephalexin 1 CAP) PO (21:00)
== END 2018-03-06 15:45 | disposition home or self-care (01) ==
LOC: ER 19:13 → 6 SOUTH 21:54
DX: D64.9 Anemia, unspecified (principal); D46.9 Myelodysplastic syndrome, unspecified; E03.9 Hypothyroidism, unspecified; I12.9 Hypertensive chronic kidney disease with stage 1 through stage 4 chronic kidney disease, or unspecified chronic kidney disease; N18.3 Chronic kidney disease, stage 3 (moderate); E78.00 Pure hypercholesterolemia, unspecified; E87.5 Hyperkalemia; I48.2 Chronic atrial fibrillation; E11.22 Type 2 diabetes mellitus with diabetic chronic kidney disease; J44.9 Chronic obstructive pulmonary disease, unspecified; Z82.5 Family history of asthma and other chronic lower respiratory diseases; Z95.0 Presence of cardiac pacemaker; Z99.3 Dependence on wheelchair
CPT/HCPCS: 36415; 36430; 80053; 82962; 85007; 85014; 85018; 85025; 86850; 86900; 86901; 86920; 93005; 96361; 96374; 96375; 96376; 99285-25; G0378; G0379; J2405; J3010; J7030; P9016